=== PATIENT | female | born 1995 | race African-American/Black ===

== ENCOUNTER 2024-08-07 10:27 | Day surgery (SDC) | payer OTHER ==
[2024-08-07 12:19] VITALS: BMI 25.4
== END 2024-08-07 13:18 | disposition home or self-care (01) ==
LOC: CSHLD/OP 10:27
PROVIDERS: ATTEND Family Medicine
DX: O47.1 False labor at or after 37 completed weeks of gestation (principal); Z79.82 Long term (current) use of aspirin; Z79.899 Other long term (current) drug therapy; Z3A.38 38 weeks gestation of pregnancy

== ENCOUNTER 2024-08-11 20:10 | Inpatient (IN) | payer OTHER ==
[~2024-08-11 20:10] MED LIST: hydrALAZINE 20 MG/ML VIAL SLOW IVP PRN
[2024-08-11] MEDS ORDERED: hydrALAZINE 20 MG/ML VIAL SLOW IVP PRN (20:28)
[2024-08-11] MEDS ORDERED: Promethazine HCl 25 MG/ML VIAL IM PRN (20:28)
[2024-08-11] MEDS ORDERED: Tranexamic Acid 1,000 MG/10 ML VIAL IVP PRN (20:28)
[2024-08-11] MEDS ORDERED: Acetaminophen 500 MG TAB PO PRN (20:28)
[2024-08-11] MEDS ORDERED: Misoprostol 200 MCG TAB PR PRN (20:28)
[2024-08-11] MEDS ORDERED: Diphenoxylate HCl/Atropine Tablet PO PRN (20:28)
[2024-08-11] MEDS ORDERED: Methylergonovine 0.2 MG/ML VIAL IM PRN (20:28)
[2024-08-11] MEDS ORDERED: Lidocaine 1% (PF) 30 ML VIAL SC PRN (20:28)
[2024-08-11] MEDS ORDERED: Oxytocin 30 units/NS 500 ML 500 ML IV SCH (20:30)
[2024-08-11] MEDS ORDERED: HYDROcodone/Acetaminophen 5/325 mg Tablet PO PRN (20:30)
[2024-08-11] MEDS ORDERED: Ibuprofen 800 MG TAB PO PRN (20:30)
[2024-08-11 20:37] VITALS: BMI 25.4
[2024-08-11] MEDS: Lactated Ringer's 1,000 ML IV SCH (21:00)
[2024-08-11 21:16] LABS: Hematocrit 32.2 % (34.9-44.5); Hemoglobin 11.1 g/dL (12.0-15.5); Mean Corpuscular HGB CONC 34.5 g/dL (32.0-36.0); Mean Corpuscular Hemoglobin 29.5 pg (27.0-33.0); Mean Corpuscular Volume 85.6 fL (81.6-98.3); Mean Platelet Volume 11.4 fL (7.4-10.4); Platelet Count 191 10x3/uL (150-450); Red Blood Cell (RBC) Count 3.76 10x6/uL (3.90-5.03); White Blood Cell (WBC) Count 7.9 10x3/uL (3.5-10.5)
[2024-08-11] MEDS: Penicillin G Potassium 5 MILL.UNITS in Sodium Chloride 0.9% 100 ML IVPB SCH (21:24)
[2024-08-11] MEDS: Penicillin G Potassium 5 MILL.UNITS VIAL ONE (21:24)
[2024-08-11] MEDS: Misoprostol 100 MCG TAB VAG SCH (21:27)
[2024-08-11 22:10] LABS: HBsAg Index 0.22 S/CO (0-0.99); Hep B Surf Ag - L&D Non-Reactive S/CO (NonReactive)
[2024-08-11 22:11] LABS: Syphilis Antibody Nonreactive (Nonreactive); Syphilis Antibody Index 0.04 S/CO (<1.00 Non-Reactive)
[2024-08-11] MEDS: fentaNYL 50 mcg/mL 1 mL Vial SLOW IVP PRN (23:49)
[2024-08-11] MEDS: Ondansetron PF 4 MG/2 ML Vial IVP PRN (23:50)
[2024-08-12] MEDS: fentaNYL/Ropivacaine Epidural 100 ML ONE (00:50)
[2024-08-12] MEDS ORDERED: Meperidine HCl/PF 25 MG (1 mL) VIAL IM PRN (01:15)
[2024-08-12] MEDS ORDERED: ePHEDrine Sulfate 50 MG/10 ML VIAL SLOW IVP PRN (01:15)
[2024-08-12] MEDS ORDERED: diphenhydrAMINE 50 MG/ML VIAL IVP PRN ×2 (01:15→13:01)
[2024-08-12] MEDS ORDERED: Naloxone HCl 0.4 mg/ml Vial IVP PRN ×4 (01:15→13:01)
[2024-08-12] MEDS ORDERED: Acetaminophen 325 MG TAB PO PRN (01:15)
[2024-08-12] MEDS ORDERED: fentaNYL 2 mcg/Ropivacaine 0.2% Epidural 100 ML CADD EPIDURAL SCH (01:15)
[2024-08-12] MEDS ORDERED: Lactated Ringer's 500 ML IV PRN (01:15)
[2024-08-12] MEDS ORDERED: Ondansetron PF 4 MG/2 ML Vial IVP PRN ×4 (01:15→15:22)
[2024-08-12] MEDS ORDERED: Promethazine HCl 25 MG/ML VIAL IM PRN ×3 (01:15→15:22)
[2024-08-12] MEDS ORDERED: Communication Order-Pharmacy FS SCH ×2 (01:15→13:15)
[2024-08-12] MEDS ORDERED: Moisturizing Cream (Eucerin) 113 GM JAR TOP PRN ×2 (01:15→13:01)
[2024-08-12] MEDS: Penicillin G 2.5 MILL.units 2.5 MILL.UNITS in Premix 1 BAG IVPB SCH (01:24)
[2024-08-12] MEDS: Terbutaline Sulfate 1 MG/ML VIAL SC SCH ×2 (02:30→19:19)
[2024-08-12] MEDS ORDERED: Penicillin G 2.5 MILL.units 2.5 MILL.UNITS in Premix 1 BAG IVPB SCH (05:00)
[2024-08-12] MEDS: Ampicillin 2 GM in Sodium Chloride 0.9% 100 ML IVPB SCH (11:51)
[2024-08-12] MEDS: GENTAMICIN SULFATE IVPB SCH (12:04)
[2024-08-12] MEDS: SODIUM CHLORIDE 0.9% IVPB SCH (12:04)
[2024-08-12] MEDS: Carboprost 250 MCG/ML AMP IM PRN (13:00)
[2024-08-12] MEDS ORDERED: HYDROmorphone 0.5 MG/0.5 ML SYRINGE SLOW IVP PRN (13:01)
[2024-08-12] MEDS ORDERED: Meperidine HCl/PF 25 MG (1 mL) VIAL SLOW IVP PRN (13:01)
[2024-08-12] MEDS ORDERED: Naloxone HCl 0.4 mg/ml Vial IV PRN (13:01)
[2024-08-12] MEDS ORDERED: fentaNYL 50 mcg/mL 1 mL Vial SLOW IVP PRN (13:01)
[2024-08-12] MEDS: Oxytocin 30 units/NS 500 ML 500 ML IV SCH (14:00)
[2024-08-12] MEDS ORDERED: Lanolin Ointment 7 GM TUBE TOP PRN (15:22)
[2024-08-12] MEDS ORDERED: diphenhydrAMINE 25 MG CAP PO PRN (15:22)
[2024-08-12] MEDS ORDERED: hydrALAZINE 20 MG/ML VIAL SLOW IVP PRN (15:22)
[2024-08-12] MEDS ORDERED: Bisacodyl 10 MG SUPP PR PRN (15:22)
[2024-08-12] MEDS: Oxytocin 10 UNITS/ML VIAL ONE (18:37)
[2024-08-12] MEDS: Lidocaine 1% (PF) 30 ML VIAL ONE (18:38)
[2024-08-12] MEDS: Morphine PF 10 MG/10 ML VIAL ONE (18:38)
[2024-08-12] MEDS: Ondansetron PF 4 MG/2 ML Vial ONE (18:38)
[2024-08-12] MEDS: Ketorolac Tromethamine 30 MG (1 mL) VIAL ONE (18:39)
[2024-08-12] MEDS: Ketorolac Tromethamine 30 MG (1 mL) VIAL IVP SCH (18:51)
[2024-08-12] MEDS ORDERED: Ketorolac Tromethamine 30 MG (1 mL) VIAL IVP PRN (19:00)
[2024-08-12] MEDS: Azithromycin 500 MG VIAL ONE (19:18)
[2024-08-12] MEDS: Dexamethasone 10 MG/ML VIAL ONE (19:19)
[2024-08-12] MEDS: Ferrous Sulfate 325 MG TAB PO SCH (21:48)
[2024-08-12] MEDS: Docusate 100 MG CAP PO SCH (21:54)
[2024-08-13 04:44] LABS: Hematocrit 24.5 % (34.9-44.5); Hemoglobin 8.4 g/dL (12.0-15.5); Mean Corpuscular HGB CONC 34.3 g/dL (32.0-36.0); Mean Corpuscular Hemoglobin 29.9 pg (27.0-33.0); Mean Corpuscular Volume 87.2 fL (81.6-98.3); Mean Platelet Volume 11.9 fL (7.4-10.4); Platelet Count 134 10x3/uL (150-450); RBC Distribution Width 13.2 % (11.5-14.5); Red Blood Cell (RBC) Count 2.81 10x6/uL (3.90-5.03); White Blood Cell (WBC) Count 16.4 10x3/uL (3.5-10.5)
[2024-08-13] MEDS: HYDROcodone/Acetaminophen 5/325 mg Tablet PO PRN ×2 (06:08→10:09)
[2024-08-13] MEDS: Simethicone Chewable 80 MG TAB PO PRN (06:09)
[2024-08-13] MEDS: Boostrix 0.5 ML (Tdap) VIAL (>/=7 yrs of age) IM ONE (07:38)
[2024-08-13] MEDS: Prenatal Vitamin 1 TAB PO SCH (08:11)
[2024-08-13] MEDS: Ibuprofen 800 MG TAB PO SCH (14:10)
[2024-08-14 08:04] VITALS: BP 97/61; TEMP 98.2
== END 2024-08-14 17:25 | disposition home or self-care (01) | DRG 787 ==
LOC: EDBD → CSHLD 20:10 → CSHPP 08-12 17:11
PROVIDERS: ADMIT Family Medicine; ATTEND Family Medicine
PROC: 10D00Z1 Extraction of Products of Conception, Low, Open Approach (ICD-10-PCS; principal; 2024-08-12)
DX: O76 Abnormality in fetal heart rate and rhythm complicating labor and delivery (principal); O75.2 Pyrexia during labor, not elsewhere classified; Z37.0 Single live birth; Z3A.38 38 weeks gestation of pregnancy; Z79.82 Long term (current) use of aspirin; Z79.899 Other long term (current) drug therapy
CPT/HCPCS: 36415; 51702; 85027; 86780; 86850; 86900; 86901; 87340; 88307; J0290; J1100; J1580; J1885; J2274; J2405; J2540; J2590; J3010; J3105; J3490; J7120